=== PATIENT | male | born 1940 | race Caucasian/White ===

== ENCOUNTER 2016-08-27 16:24 | Inpatient (IN) | payer MEDICARE, BC ==
--- NOTE | ~2016-08-27 | HP ---
Unit #: [id number] #: [id number] Patient: JAQUAN STEVENSON [id number] [address] [place], [place] [address] [id number] I MR#: [id number] NAME: JAQUAN STEVENSON. ROOM: 572 Age: 76 Sex: M Admission Date: 08/27/2016 : 1940 Attending Physician: Jenny Granados M.D. Primary Care Physician: William Fernandez Jr., M.D. HISTORY AND PHYSICAL CHIEF COMPLAINT Mechanical fall with transverse displaced angulated right humerus fracture. HISTORY This very pleasant, 76-year-old male with DJD, CAD, history of arrhythmia, and hypertension is admitted for a right arm fracture. Patient was cleaning his gutters today, slipped off the last rung of the ladder, and fell backwards onto his right shoulder. Developed severe right shoulder pain and was brought to this ER tonight. X-rays show a displaced, angulated, transverse fracture, proximal shaft of the right humerus below his previous arthroplasty. Patient is in fairly significant pain and will be admitted to the hospital. Hopes are that surgery can be performed during this hospitalization. His usual surgeon, Dr. Mcgill, would not be able to put the patient on or schedule until mid next week. Patient's requests consultation from another orthopedic surgeon in hopes of sooner surgery. Again, he is in a considerable amount of pain, and his currently is disabled. PAST MEDICAL HISTORY 1. DJD. 2. CAD, status post PCI and stent many years ago status post AICD and permanent pacemaker insertion. Patient denies recent cardiac symptoms. He underwent a normal stress echo by Dr. Hernandez 12/2014. Ejection fraction was equal to 59%. No wall motion abnormalities. Mild MR noted. Grade 1 diastolic dysfunction. 3. Essential hypertension. 4. Early macular degeneration. 5. Neuropathy of the right foot, patient requires a brace. 6. Bilateral total knee replacements with left knee revision 05/2015. 7. Right shoulder replacement. 8. Left tennis elbow surgery. ALLERGIES To IV dye. HOME MEDICATIONS 1. Lopressor 50 mg b.i.d. 2. Imdur 30 mg daily. 3. Amiodarone 200 mg daily. 4. Norvasc 5 mg daily. 5. Aspirin 81 mg daily. 6. Lipitor 80 mg daily. 7. Lasix 20 mg as needed. Unit #: [id number] #: [id number] Patient: JAQUAN STEVENSON 8. Mobic 15 mg daily. FAMILY HISTORY CAD and kidney stones. SOCIAL HISTORY The patient lives with his who previously was a RN on [employer]. He is a lifelong nonsmoker and does not drink alcohol. REVIEW OF SYSTEMS Notable for a fall with painful right arm, DJD, CAD with abovementioned procedures, arrhythmia, macular degeneration, neuropathy, hypertension, and abovementioned surgeries. All other systems were reviewed and are otherwise negative. PHYSICAL EXAMINATION GENERAL APPEARANCE: Very pleasant, 76-year-old, mildly obese male currently in no acute distress after a couple of doses of morphine. VITAL SIGNS: Temperature 98.1, pulse 71, respirations 17, blood pressure 162/65, and O2 saturation 99% on room air. HEENT: Eyes: PERRLA. Extraocular muscles are intact. Pharynx: Benign. NECK: Supple without adenopathy or thyromegaly. CHEST: Clear. CARDIAC: Normal S1 and S2 without S3, S4, or murmur. ABDOMEN: Bowels sounds are present. No hepatosplenomegaly, tenderness, or masses. EXTREMITIES: With mild edema. Pedal pulses are diminished. Patient has a good right radial pulse. NEUROLOGIC: Patient is awake, alert, and oriented. His cranial nerves are intact. He is able to move all of his extremities. DIAGNOSTIC STUDIES IMAGING: X-ray shows a displaced, angulated, transverse fracture of the proximal shaft of the right humerus below the patient's right shoulder arthroplasty. ASSESSMENT 1. Mechanical fall with displaced, angulated, transverse fracture of the right humerus shaft below a previous arthroplasty. Patient is in considerable amount of pain and in a swath and sling. 2. CAD with normal LV function, status post PCI and stent. Asymptomatic from a cardiac standpoint. Negative stress echo, 12/2014, by Dr. Hernandez. He is status post AICD placement and permanent pacemaker insertion. 3. Hypertension. 4. DJD. 5. Early macular degeneration. PLANS 1. Check preop labs, EKG, along with urinalysis. 2. Pain control. 3. SCDs for DVT prophylaxis. 4. Sling and swath. 5. Patient's usual orthopedic surgeon, Dr. Mcgill, will not be able to perform surgery until mid next week. Patient requests consultation from Dr. Worley to see in the morning given severe pain and immobilization from his humerus fracture in hopes of sooner surgery. Unit #: [id number] #: [id number] Patient: JAQUAN STEVENSON Dictated by Chrissie Mariano/valentino TD: 08/28/2016 05:07 JOB #: [id number] HISTORY AND PHYSICAL Page 1 of 1 X Jenny Granados MD X HISTORY AND PHYSICAL
--- NOTE | ~2016-08-27 | CR157 ---
[facility] A Service of [facility] RADIOLOGY TEXT RESULTS PATIENT: JAQUAN STEVENSON LOCATION: C4B 454-01 : 40 UNIT #: [id number] AGE: [address]: Naveed Camargo MD SEX: M ORDER DR: [id number] [facility] [address] [facility]. [place], [place] [address] [id number] I MR#: [id number] Acc #: [id number] NAME: JAQUAN STEVENSON : 1940 SEX: M STUDY DATE/TIME: 08/28/2016 21:11 UNIT: C4B ROOM: [facility] STUDY DESCRIPTION: CR Humerus Min 2 View Rt Attending Physician: Naveed Camargo M.D. Ordering Physician: Naveed Camargo M.D. Primary Care Physician: William Fernandez Jr., M.D. MEDICAL IMAGING REPORT This report is preliminary unless electronic signature is present EXAM Right humerus series 08/28/2016 HISTORY Right humerus fracture postop brace. Cannot move arm or brace per order today. Yesterday fell broke arm off steps. FINDINGS AP and oblique views of the right humerus are presented. Comparison to shoulder series 08/27/2016. Prior right shoulder arthroplasty. There is a complete transverse fracture of the right humeral shaft near mid shaft level, at level of distal extent of orthopedic cement utilized for arthroplasty. The distal shaft fragment is displaced laterally by nearly a complete shaft width. There is no significant angulation. Minimal overlap of fracture fragments. The shoulder arthroplasty appears normally located and very limited view of the elbow joint appears grossly normally located. Degenerative changes in the acromioclavicular joint. Visualized ribs and pulmonary parenchyma unremarkable. Dictated by... William Elliott M.D. THIS IS AN ELECTRONICALLY VERIFIED REPORT William Elliott M.D. at 08/31/2016 8:20 PM JOSH/viktor TD: 08/29/2016 07:36 JOB #: [id number] MEDICAL IMAGING REPORT [facility] A Service of [facility] RADIOLOGY TEXT RESULTS PATIENT: JAQUAN STEVENSON LOCATION: [facility] 454-01 : 40 UNIT #: [id number] AGE: [address]: Naveed Camargo MD SEX: M ORDER DR: Page 1 of 1 COPY
--- NOTE | ~2016-08-27 | CR157 ---
[facility] A Service of [facility] RADIOLOGY TEXT RESULTS PATIENT: JAQUAN STEVENSON LOCATION: [facility] : 40 UNIT #: [id number] AGE: [address]: Naveed Camargo MD SEX: M ORDER DR: [id number] [facility] [address] [facility]. [place], [place] [address] [id number] I MR#: [id number] Acc #: [id number] NAME: JAQUAN STEVENSON : 1940 SEX: M STUDY DATE/TIME: 08/31/2016 13:12 UNIT: [facility] ROOM: [facility] STUDY DESCRIPTION: CR Humerus Min 2 View Rt Attending Physician: Naveed Camargo M.D. Ordering Physician: Ricky Worley M.D. Primary Care Physician: William Fernandez Jr., M.D. MEDICAL IMAGING REPORT This report is preliminary unless electronic signature is present EXAM Right humerus intraoperative views, 08/31/2016 13:12 hours HISTORY Closed intraoperative reduction of fracture of the humerus. COMPARISON 08/28/2016 Fluoroscopy time 1 minute, 10 seconds. Dose not recorded on image. FINDINGS Submitted for interpretation are 2 intraoperative views demonstrating a fracture of the humerus distal to the cement associated with the shoulder replacement. The overriding and angulation is reduced. The distal fragment is displaced laterally approximately one-half shaft width. IMPRESSION Intraoperative views demonstrate reduction of the overriding and angulation of the fracture of the mid humerus distal to the cement associated with the hardware at the right shoulder. There is slight displacement but no residual angulation or overriding of the fracture. Dictated by... Leny Guthrie M.D. THIS IS AN ELECTRONICALLY VERIFIED REPORT Leny Guthrie M.D. at 09/01/2016 9:28 AM Cristino TD: 08/31/2016 16:15 JOB #: [id number] [facility] A Service [facility] RADIOLOGY TEXT RESULTS PATIENT: JAQUAN STEVENSON LOCATION: [facility] : 40 UNIT #: [id number] AGE: [address]: Naveed Camargo MD SEX: M ORDER DR: MEDICAL IMAGING REPORT Page 1 of 1 COPY
--- NOTE | ~2016-08-27 | OR ---
Unit #: [id number] #: [id number] Patient: JAQUAN STEVENSON [id number] [address] [place], [place] [address] [id number] I MR#: [id number] NAME: JAQUAN STEVENSON. ROOM: 454 Date of Procedure: 08/31/2016 Admission Date: 08/27/2016 Surgeon: Ricky Worley M.D. : 1940 Attending Physician: Susanne Nieto M.D. Primary Care Physician: William Fernandez Jr., M.D. OPERATIVE REPORT PREOPERATIVE DIAGNOSIS Right periprosthetic humerus fracture. POSTOPERATIVE DIAGNOSIS Right periprosthetic humerus fracture. PROCEDURES Closed reduction, right humerus. SMART ENERGY SPECIALIST Marquita Desouza APRN, TETO. ANESTHESIA General with regional nerve block. ESTIMATED BLOOD LOSS Not applicable. INDICATIONS FOR PROCEDURE Mr. Stevenson is a 76-year-old gentleman with a displaced right periprosthetic humerus fracture. We trialed bracing with Amor brace. This has resulted in some translation of the distal shaft, relative to the proximal shaft. A closed reduction attempt was then indicated to see if his fracture is amenable to closed treatment. DESCRIPTION OF PROCEDURE The patient was identified in the preoperative holding area. The operative site was marked. Preoperative antibiotics were not indicated. Regional block was performed by Anesthesia in an attempt to avoid a general anesthetic given the patient's medical comorbidities. The patient was brought to the operating room and placed in supine on the operating table. The right upper extremity was anesthetized by the regional block. A closed reduction attempt was performed and was unsuccessful. Additional relaxation was required. The patient was then given propofol sedation which was still inadequate. The patient was then given further Propofol and a small dose of succinylcholine. This resulted in an improved distraction at the fracture site and improved apposition of the cortex, but we were still unable to completely reduced the fracture anatomically. After multiple attempts were made with longitudinal traction and pulling with a sheath in a contralateral direction. In the internal and external rotation of the arm, we placed the Amor brace Unit #: [id number] #: [id number] Patient: JAQUAN STVEENSON back in place and with a plan to re-x-ray of the patient with standing upright film. DISPOSITION Pending appearance on a full-length humerus film. Dictated by... Chrissie Morrell/delfino TD: 09/02/2016 23:58 JOB #: [id number] OPERATIVE REPORT Page 1 of 1 X Ricky Worley MD PROCEDURE OPERATIVE NOTE
--- NOTE | ~2016-08-27 | US140 ---
[facility] A Service of [facility] RADIOLOGY TEXT RESULTS PATIENT: JAQUAN STEVENSON LOCATION: [facility] : 40 UNIT #: [id number] AGE: [address]: Susanne Nieto MD SEX: M ORDER DR: [id number] [facility] [address]. [place], [place] [address] [id number] I MR#: [id number] Acc #: [id number] NAME: JAQUAN STEVENSON : 1940 SEX: M STUDY DATE/TIME: 09/01/2016 14:30 UNIT: B ROOM: [facility] STUDY DESCRIPTION: US UE Veins Unilat or Ltd Stdy Attending Physician: Susanne Nieto M.D. Ordering Physician: Susanne Nieto M.D. Primary Care Physician: William Fernandez Jr., M.D. MEDICAL IMAGING REPORT This report is preliminary unless electronic signature is present EXAM Right upper extremity venous ultrasound, 09/01/2016. HISTORY Right arm swelling for a week after breaking arm. TECHNIQUE Venous ultrasound examination of the right upper extremity was performed using grayscale, spectral Doppler and color flow Doppler imaging. FINDINGS The examination is negative. There is no evidence of deep venous thrombus within the right internal jugular vein, subclavian vein, axillary vein or brachial veins. No superficial venous thrombus is seen within the cephalic or basilic veins. IMPRESSION Negative examination. No evidence of right upper extremity venous thrombosis. Dictated by... Terry Rosado M.D. THIS IS AN ELECTRONICALLY VERIFIED REPORT Terry Rosado M.D. at 09/01/2016 4:56 PM CLAY/ken TD: 09/01/2016 16:44 JOB #: [id number] [facility] A Service [facility] RADIOLOGY TEXT RESULTS PATIENT: JAQUAN STEVENSON LOCATION: [facility] 454 : 40 UNIT #: [id number] AGE: [address]: Susanne Nieto MD SEX: M ORDER DR: MEDICAL IMAGING REPORT Page 1 of 1 COPY
--- NOTE | ~2016-08-27 | DS ---
Unit #: [id number] #: [id number] Patient: JAQUAN STEVENSON [id number] [address] [place], [place] [address] [id number] I MR#: [id number] NAME: JAQUAN STEVENSON. ROOM: 454 Age: 76 Sex: M Admission Date: 08/27/2016 : 1940 Discharge Date: 09/03/2016 Attending Physician: Susanne Nieto M.D. Primary Care Physician: William Fernandez Jr., M.D. DISCHARGE SUMMARY PRINCIPAL DIAGNOSES 1. Right displaced periprosthetic humerus fracture, status post open reduction and internal fixation. 2. Acute postoperative blood loss anemia. Discharge hemoglobin 10.9. 3. Hypertension. 4. Mild hyperglycemia. 5. Coronary artery disease. 6. Chronic diastolic congestive heart failure without exacerbation. Ejection fraction 59%. 7. Early macular degeneration. 8. Neuropathy of the right foot, chronic. 9. Osteoarthritis. 10. Status post atrial implantable cardioverter defibrillator. CONSULTANTS Dr. Worley, orthopedic surgery. PROCEDURES PERFORMED 1. Attempted closed reduction of right humerus fracture on 08/31/2016. This was, unfortunately, unsuccessful. 2. Open reduction and internal fixation of right humerus fracture on 09/02/2016. This occurred without complication. DIAGNOSTIC DATA IMAGING: X-ray of right shoulder on 08/27/2016 with displaced and angulated transverse fracture through the proximal shaft of the right humerus, below the tip of the humeral component of the right shoulder arthroplasty. Right upper extremity venous Doppler which was negative for DVT. CLINICAL HISTORY/HOSPITAL COURSE Mr. Stevenson is a very nice 76-year-old male who presented to the emergency department with the abrupt onset of right shoulder pain after falling off his wooden deck at home while it was raining. Please refer to history and physical for further details. X-ray of the right shoulder in the emergency department revealed a periprosthetic fracture and the patient was subsequently admitted. Dr. Worley was consulted. The patient subsequently underwent attempted closed reduction of the fracture, but unfortunately this was unsuccessful. He subsequently underwent open reduction and internal fixation on 09/02/2016. Postoperatively he has done very well. Plan is nonweightbearing of this fracture until followup with Dr. Worley. Unit #: [id number] #: [id number] Patient: JAQUAN STEVENSON The patient did develop some significant swelling of the right upper extremity secondary to the fall itself and subsequent bracing. Right upper extremity venous Doppler was negative for DVT. The patient will continue with therapy as outlined below. The patient's other chronic conditions all remained stable. He will be discharged home with home health today. DISCHARGE CONDITION Stable. DISPOSITION Discharge to home. DISCHARGE MEDICATIONS 1. Amiodarone 200 mg p.o. daily. 2. Atorvastatin 80 mg at bedtime. 3. Norvasc 5 mg daily. 4. Metoprolol succinate 50 mg b.i.d. 5. Lasix 20 mg p.o. daily p.r.n. for fluid overload. 6. Aspirin 81 mg daily. 7. Mobic 15 mg daily. 8. Percocet 10/325 mg 1 tablet p.o. q.4 h. p.r.n. pain. 9. Imdur ER 30 mg daily. DIET The patient was instructed to follow a heart-healthy diet. ACTIVITY 1. He is nonweightbearing on the right upper extremity. He may remain in the sling essentially all day, but may remove it two to three times per day to perform pendulum and range of motion of the elbow, wrist and hand. 2. He is to have daily dressing changes to the right upper extremity incision. 3. He may shower, but cannot get the incision wet, keep occlusive over the incision with showering. 4. He is not allowed to drive for at least six weeks [address] Dr. Worley's instructions. FOLLOWUP 1. The patient will follow up with Dr. Worley in two weeks. 2. He can follow up with his primary care physician, Dr. Fernandez, in approximately one month. Dictated by... Susanne Nieto M.D. ADOLFO/eriberto TD: 09/03/2016 13:00 JOB #: [id number] Unit #: [id number] #: [id number] Patient: JAQUAN STEVENSON DISCHARGE SUMMARY Page 1 of 1 X Susanen Nieto MD X DISCHARGE SUMMARY
--- NOTE | ~2016-08-27 | CR154 ---
[facility] A Service of [facility] RADIOLOGY TEXT RESULTS PATIENT: JAQUAN STEVENSON LOCATION: B 454-01 : 40 UNIT #: [id number] AGE: [address]: Susanne Nieto MD SEX: M ORDER DR: [id number] [facility] [address] [facility]. [place], [place] [address] [id number] I MR#: [id number] Acc #: [id number] NAME: JAQUAN STEVENSON : 1940 SEX: M STUDY DATE/TIME: 08/31/2016 17:30 UNIT: [facility] ROOM: [facility] STUDY DESCRIPTION: CR Humerus 1 View Rt Attending Physician: Naveed Camargo M.D. Ordering Physician: Ricky Worley M.D. Primary Care Physician: William Fernandez Jr., M.D. MEDICAL IMAGING REPORT This report is preliminary unless electronic signature is present EXAM Single view right humerus 08/31/2016 HISTORY Postop closed reduction. COMPARISON STUDIES Earlier today. FINDINGS Single view of the humerus demonstrates persistent displaced fracture, although the degree of the displacement has decreased. There is a shoulder arthroplasty present. IMPRESSION Persistent displaced mid-humeral fracture, although the degree of displacement has decreased. Dictated by... Pranav Noland M.D. THIS IS AN ELECTRONICALLY VERIFIED REPORT Pranav Noland M.D. at 09/02/2016 7:25 AM ARS/pcl TD: 08/31/2016 23:29 JOB #: [id number] MEDICAL IMAGING REPORT Page 1 of 1 COPY
--- NOTE | ~2016-08-27 | CR230 ---
[facility] A Service [facility] RADIOLOGY TEXT RESULTS PATIENT: JAQUAN STEVENSON LOCATION: [place] [address] : 40 UNIT #: [id number] AGE: [address]: Susanne Nieto MD SEX: M ORDER DR: [id number] [place] [id number] [facility]. [place], [place] [address] [id number] I MR#: [id number] Acc #: [id number] NAME: JAQUAN STEVENSON : 1940 SEX: M STUDY DATE/TIME: 09/02/2016 12:46 UNIT: [facility] ROOM: [facility] STUDY DESCRIPTION: CR Shoulder Min 2 View Rt Attending Physician: Susanne Nieto M.D. Ordering Physician: Ricky Worley M.D. Primary Care Physician: William Fernandez Jr., M.D. MEDICAL IMAGING REPORT This report is preliminary unless electronic signature is present EXAM Right shoulder, 09/02/2016. HISTORY Internal fixation of proximal humerus fracture. TECHNIQUE AP and lateral views of the shoulder was obtained. COMPARISON 08/27/2016 FINDINGS A long metal plate has been attached to the proximal 2/3 of the humerus, transfixing the fracture slightly proximal to the mid portion of the bone. There is a right shoulder prosthesis present, as well. IMPRESSION Internal fixation of the humeral shaft fracture has been performed. Dictated by... Terry Rosado M.D. THIS IS AN ELECTRONICALLY VERIFIED REPORT Terry Rosado M.D. at 09/02/2016 3:39 PM CLAY/ken TD: 09/02/2016 13:24 JOB #: [id number] [facility] A Service [facility] RADIOLOGY TEXT RESULTS PATIENT: JAQUAN STEVENSON LOCATION: [place] [address] : 40 UNIT #: [id number] AGE: [address]: Susanne Nieto MD SEX: M ORDER DR: MEDICAL IMAGING REPORT Page 1 of 1 COPY
--- NOTE | ~2016-08-27 | CO ---
Unit #: [id number] #: [id number] Patient: JAQUAN STEVENSON [id number] [address] [place], [place] [address] [id number] I MR#: [id number] NAME: JAQUAN STEVENSON. ROOM: 454 Age: 76 Sex: M Admission Date: 08/27/2016 : 1940 Attending Physician: Naveed Camargo M.D. Primary Care Physician: William Fernandez Jr., M.D. Consultation Date: 08/28/2016 CONSULTATION REPORT CHIEF COMPLAINT Right shoulder pain. HISTORY OF PRESENT ILLNESS Mr. Stevenson is a 67-year-old gentleman, who injured his right shoulder in a ground level slip and fall at home. He slipped and fell on a wet step on his deck. He landed on an outstretched right upper extremity. He then was subsequently seen in the emergency department where he was diagnosed with a right periprosthetic humeral shaft fracture. He is status post a previous right total shoulder arthroplasty. He was doing well with his implant prior to this fall. He was able to reach fully overhead, had no pain or difficulty. He is currently examined in his hospital bed. He is in a sling and a posterior splint. He is complaining of numbness in his hand. He is complaining of pain in the right shoulder with any attempted movement of the arm. It is only incompletely relieved with his pain medication. PAST MEDICAL HISTORY Hypertension, coronary artery disease, atrial fibrillation, hyperlipidemia. PAST SURGICAL HISTORY Pacemaker, defibrillator placement, coronary stenting x3, right total shoulder replacement, right total knee replacement, left tennis elbow release, left total knee replacement. MEDICATIONS Metoprolol, isosorbide mononitrate, amiodarone, amlodipine, aspirin, atorvastatin, furosemide, meloxicam, Viteyes, and multivitamin. ALLERGIES IV dye. SOCIAL HISTORY The patient has no alcohol or tobacco use. No illicit drug use. FAMILY HISTORY Noncontributory to current illness. REVIEW OF SYSTEMS Ten systems reviewed and negative except as noted in the HPI. PHYSICAL EXAMINATION GENERAL APPEARANCE: Healthy-appearing 76-year-old gentleman, in no acute Unit #: [id number] #: [id number] Patient: JAQUAN STEVENSON distress or discomfort. PSYCHIATRIC: Awake, alert, and oriented to person, place, time, and situation with normal range of mood and affect. CARDIAC: Regular rate and rhythm. PULMONARY: No increased work of breathing. Symmetric chest rise. ABDOMEN: Nondistended. NEUROLOGIC: He reports paresthesias in the hand diffusely, but has intact motor and sensory function throughout median, ulnar, and radial nerves. He has otherwise no neurologic deficits. LYMPHATICS: There was slight lymphedema in the fingers as expected with the current splinting. SKIN: He is in a splint, which partially obscures visualization of the arm, but no evidence of open fractures noted. There is no ecchymosis currently. There is expected soft tissue swelling. VASCULAR: His fingers are warm and well perfused with brisk capillary refill. MUSCULOSKELETAL: He is in a posterior splint in the right upper extremity. Further range of motion of the shoulder is deferred given the known fracture. DIAGNOSTIC STUDIES IMAGING STUDIES: Plain film radiographs reviewed of the right shoulder. These demonstrate a right periprosthetic humeral shaft fracture at the base of the implant. Overall alignment is well reduced on one view and there is slight apparent apex anterior angulation on the orthogonal view. IMPRESSION This is a 76-year-old gentleman with a right periprosthetic humeral shaft fracture. I will recommend a trial of bracing with a Amor brace. We will obtain this from [facility]. We will then re-x-ray him in the brace and try to manage this nonoperatively. Further disposition pending the results of the post bracing x-rays. Dictated by... Chrissie Morrell/delfino TD: 08/29/2016 03:35 JOB #: [id number] CONSULTATION REPORT Page 1 of 1 X Ricky Worley MD CONSULTATION REPORT
--- NOTE | ~2016-08-27 | CR157 ---
[facility] A Service of [facility] RADIOLOGY TEXT RESULTS PATIENT: JAQUAN STEVENSON LOCATION: B 454 : 40 UNIT #: [id number] AGE: [address]: Susanne Nieto MD SEX: M ORDER DR: [id number] [facility] [address] [facility]. [place], [place] [address] [id number] I MR#: [id number] Acc #: [id number] NAME: JAQUAN STEVENSON : 1940 SEX: M STUDY DATE/TIME: 09/02/2016 10:10 UNIT: [facility] ROOM: [facility] STUDY DESCRIPTION: CR Humerus Min 2 View Rt Attending Physician: Susanne Nieto M.D. Ordering Physician: Ricky Worley M.D. Primary Care Physician: William Fernandez Jr., M.D. MEDICAL IMAGING REPORT This report is preliminary unless electronic signature is present EXAM Right humerus HISTORY Humeral fracture. Open reduction internal fixation. TECHNIQUE 4 spot films were obtained for imaging guidance for open reduction and internal fixation of the humerus with a bone plate screws. Fluoroscopy time documented 1 minute 20 seconds. FINDINGS Please see the operative report for full details of the procedure. Alignment position across the fracture is anatomic. Dictated by... Ang Moore M.D. THIS IS AN ELECTRONICALLY VERIFIED REPORT Ang Moore M.D. at 09/02/2016 6:21 PM RLF/nhan TD: 09/02/2016 11:51 JOB #: [id number] MEDICAL IMAGING REPORT Page 1 of 1 COPY
--- NOTE | ~2016-08-27 | OR ---
Unit #: [id number] #: [id number] Patient: JAQUAN STEVENSON [id number] [address] [place], [place] [address] [id number] I MR#: [id number] NAME: JAQUAN STEVENSON. ROOM: 454 Date of Procedure: 09/02/2016 Admission Date: 08/27/2016 Surgeon: Ricky Worley M.D. : 1940 Attending Physician: Susanne Nieto M.D. Primary Care Physician: William Fernandez Jr., M.D. OPERATIVE REPORT PREOPERATIVE DIAGNOSIS Right displaced periprosthetic humerus fracture. POSTOPERATIVE DIAGNOSIS Right displaced periprosthetic humerus fracture. PROCEDURE PERFORMED Open reduction and internal fixation of right periprosthetic humerus fracture. MECHANICAL MAINTENANCE ENGINEER Marquita Desouza APRN, RNFA. ANESTHESIA General with interscalene nerve block. ESTIMATED BLOOD LOSS 200 mL. SPECIMENS None. COMPLICATIONS None apparent. IMPLANTS [employer] 14-hole NCB straight plate with 4.0 mm screws. INDICATIONS FOR PROCEDURE Mr. Stevenson is a 76-year-old gentleman, who has undergone a previous closed reduction attempt of his right periprosthetic humerus fracture. He has been in a Amor brace. The alignment improved, but continues to remain insufficiently reduced and be amenable to his closed treatment in a brace. We have discussed at this point transitioned to open reduction and internal fixation. He elected to proceed. Of note, the patient had questionable axillary nerve palsy. It is difficult to determine secondary to pain. Axillary nerve sensation is intact, but he has difficulty with humeral abduction and eliciting deltoid contraction. Musculocutaneous nerve function as well as median, ulnar, and radial nerve function is intact. DESCRIPTION OF PROCEDURE Unit #: [id number] #: [id number] Patient: JAQUAN STEVENSON The patient was identified in the preoperative holding area. The operative site was marked. Preoperative antibiotics were administered. A regional block was performed. The patient was brought to the operating room and placed supine on the operating table. A general anesthetic was induced. The arm was positioned on a radiolucent hand table. The right upper extremity was then prepped and draped in sterile fashion. The previous surgical incision was marked out over the anterior aspect of the shoulder and then marked out an extensile anterior approach to the humerus. The skin was incised sharply including extending up into the previous deltopectoral incision. The incision was then curved distally along the anterolateral humerus. Dissection was carried down to the subcutaneous tissues. The biceps brachii was identified distally and retracted medially. The underlying brachialis was identified. The prior deltopectoral interval was scarred, but was identifiable and was redeveloped. The lateral humeral cortex was identified proximally and distally and then we dissected toward the fracture site. The deltoid was elevated up off the humerus at the fracture site and tagged with Ethibond sutures for later repair. The fracture was identified and debrided of any interposed fibrous tissue. Fracture hematoma was left at the fracture site. Minimal periosteal elevation was performed around the fracture site. This was sufficiently mobilized to allow reduction of the fracture. Two lobster claw clamps were utilized to distract and then reduce the humeral shaft fracture. This was then provisionally clamped and plate of the desired size selected. We ultimately selected a size 14 plate. The plate was secured distally with a nonlocking fully-threaded cortical screw and proximally with a nonlocking fully-threaded cortical screw. The plate was positioned slightly anterior on the humeral shaft proximally to try to allow for screw fixation anterior to the humeral stem. The reduction was anatomic and plate placement was as desired. We then placed a total of 4 nonlocking fully-threaded cortical screws distally. We placed multiple nonlocking fully-threaded cortical screws proximally as well. These were all able to achieve bicortical purchase in a variable length anterior to the humeral stem. The first and third of the screws were then converted to locking screws with locking caps and the plate. All remaining screws were kept as nonlocking screws. Cerclage cables were not felt to be warranted given the sufficient bicortical screw purchase we had approximately around the stem. The arm was taken through range of motion and the fracture was stable and moved as a unit. The final x-rays were obtained as noted above and demonstrated adequate screw length and an anatomic reduction of the fracture. The wound was then irrigated and closed in a layered fashion. This included a #5 Ethibond closure of the deltoid back to the pectoralis as well as closure of the split in the brachialis and 0 Vicryl in the deltopectoral interval. The wound was then closed with 2-0 Vicryl and belen in the skin. Sterile dressings were applied. DISPOSITION Stable to the recovery room. Dictated by... Chrissie Morrell/delfino TD: 09/03/2016 03:06 JOB #: [id number] Unit #: [id number] #: [id number] Patient: JAQUAN STEVENSON OPERATIVE REPORT Page 1 of 1 X Ricky Worley MD X PROCEDURE OPERATIVE NOTE
--- NOTE | ~2016-08-27 | EKG ---
PATIENT: JAQUAN STEVENSON UNIT #: [id number] Ventricular Rate: 70 BPM Atrial Rate: 70 BPM P-R Interval: 234 ms QRS Duration: 120 ms Q-T Interval: 436 ms QTC Calculation(Bezet): 470 ms P [place]: -12 degrees Calculated R [place]: -32 degrees Calculated T [place]: 25 degrees Diagnosis Line: Atrial-paced rhythm with prolonged AV conduction Diagnosis Line: Left axis deviation Diagnosis Line: Poor R wave progression questionable lead position Diagnosis Line: or body habitus Diagnosis Line: Abnormal ECG Diagnosis Line: No previous ECGs available Diagnosis Line: Confirmed by QASIM GOLDMAN MD ([id number]) on 08/28/2016 Diagnosis Line: 8:07:53 PM INTERPRETING MD: SUSI RAO
--- NOTE | ~2016-08-27 | CR230 ---
[facility] A Service of [facility] RADIOLOGY TEXT RESULTS PATIENT: JAQUAN STEVENSON LOCATION: [facility] 454 : 40 UNIT #: [id number] AGE: [address]: Naveed Camargo MD SEX: M ORDER DR: [id number] [facility] [address] [facility]. [place], [place] [address] [id number] I MR#: [id number] Acc #: [id number] NAME: JAQUAN STEVENSON. : 1940 SEX: M STUDY DATE/TIME: 08/27/2016 17:51 UNIT: [facility] ROOM: 572 STUDY DESCRIPTION: CR Shoulder Min 2 View Rt Attending Physician: Jenny Granados M.D. Ordering Physician: Zeinab Abreu P.A.-C. Primary Care Physician: William Fernandez Jr., M.D. MEDICAL IMAGING REPORT This report is preliminary unless electronic signature is present EXAM Right shoulder 08/27/2016 HISTORY 76-year-old male with right shoulder pain status post fall from ladder today. COMPARISON None. FINDINGS 3 views of the right shoulder demonstrate a displaced transverse fracture through the proximal shaft of the right humerus. The fracture is below the tip of the humeral component of the right shoulder arthroplasty. Mild apex anterior angulation. Right shoulder arthroplasty remains normally located. Moderate degenerative change of the acromioclavicular joint. IMPRESSION 1. Displaced and angulated transverse fracture through the proximal shaft of the right humerus below the tip of the humeral component of the right shoulder arthroplasty. 2. No glenohumeral dislocation. Dictated by... Gennaro Barr M.D. THIS IS AN ELECTRONICALLY VERIFIED REPORT Gennaro Barr M.D. at 08/31/2016 7:39 AM ALFREDO/celine TD: 08/28/2016 01:01 JOB #: [id number] [facility] A Service of [facility] RADIOLOGY TEXT RESULTS PATIENT: JAQUAN STEVENSON LOCATION: [facility] 454-01 : 40 UNIT #: [id number] AGE: [address]: Naveed Camargo MD SEX: M ORDER DR: MEDICAL IMAGING REPORT Page 1 of 1 COPY
[~2016-08-27 16:24] MED LIST: ACETAMINOPHEN325 MG PO; AMIODARONE PO; ASPIRIN EC81 M1; ASPIRIN PO; ASPIRIN81 M1 PO; CERTAGEN PO; CLINORIL; CLINORIL PO; CLINORIL200 M1 PO; CORDARONE200 M1 PO; COUMADIN PO; COUMADIN6 MG PO; HYDROCODON-ACE1 EAC1 PO; HYDROCODON-ACE1 EAC2 PO; IMDUR PO; IMDUR-ER30 MG PO; LIPITOR PO; LIPITOR80 MG PO; LORTAB 5/500 TA1 TA1 PO; NABUMETONE PO; NORCO 10/3251 TAB PO; NORCO 5/325 TAB1 TAB PO; NORVASC PO; SULAR PO; SULAR20 MG PO; TOPROL XL; TOPROL XL PO; TOPROL XL50 MG PO; VITA EYES PO; [UNRECOGNIZED DRUG - OTHER]; [UNRECOGNIZED DRUG - OTHER] PO
[2016-08-27] MEDS ORDERED: METOPROLOL SUCC50 MG PO (20:31)
[2016-08-27] MEDS ORDERED: IMDUR-ER30 M3 PO (20:31)
[2016-08-27] MEDS ORDERED: AMLODIPINE BESYL5 MG PO (20:32)
[2016-08-27] MEDS ORDERED: AMIODARONE HCL200 MG PO (20:32)
[2016-08-27] MEDS ORDERED: ASPIRIN EC81 M1 PO (20:33)
[2016-08-27] MEDS ORDERED: MOBIC15 MG PO (20:33)
[2016-08-27] MEDS ORDERED: ATORVASTATIN CA80 MG PO (20:33)
[2016-08-27] MEDS ORDERED: LASIX20 MG PO (20:33)
[2016-08-28 05:00] LABS: URINE SOURCE CLEAN CATCH
[2016-08-28 05:11] LABS: URINE APPEARANCE CLEAR; URINE BILIRUBIN NEG (NEG); URINE BLOOD NEG (NEG); URINE COLOR YELLOW; URINE GLUCOSE 500 MG/DL (NEG); URINE KETONE NEG (NEG); URINE LEUKOCYTE ESTERASE NEG (NEG); URINE NITRATE NEG (NEG); URINE PROTEIN NEG (NEG); URINE SPECIFIC GRAVITY 1.028 (1.003-1.035)
[2016-08-28 05:21] LABS: CULTURE INDICATED? NO
[2016-08-28 07:44] LABS: BASOPHIL% 0.4 % (0-2.5); DIFF IND NO; EOSINOPHIL# 0.2 X10e3 (0-0.7); EOSINOPHIL% 1.8 % (0.0-7.0); HEMATOCRIT 38.2 % (38.0-50.0); HEMOGLOBIN 12.5 gm/dL (13.0-16.0); LYMPHOCYTE# 1.5 X10e3 (1.0-3.5); MEAN CORPUSCULAR HEMOGLOBIN 30.8 PG (28-34); MEAN CORPUSCULAR HGB CONC 32.8 g/dL (30-36); MEAN PLATELET VOLUME 9.6 FL (6.5-11.5); MONOCYTE# 0.9 X10e3 (0-1.0); MONOCYTE% 9.8 % (3.0-12.0); NEUTROPHIL# 6.1 X10e3 (1.5-7.1); PLATELET COUNT 137 X10e3 (140-420); RED BLOOD COUNT 4.07 X10e (3.90-5.60); RED CELL DISTRIBUTION WIDTH 14.4 % (11.0-15.5); WHITE BLOOD COUNT 8.6 X10e3 (4.0-10.5)
[2016-08-28 08:21] LABS: BUN/CREATININE RATIO 28.75; CREATININE SERUM 0.8 mg/dL (0.6-1.4); GLOM FILT RATE Estimated 86.8 mL/min (>60); POTASSIUM 3.7 mmol/L (3.5-5.1)
[2016-09-01 05:01] LABS: BASOPHIL% 0.4 % (0-2.5); EOSINOPHIL# 0.4 X10e3 (0-0.7); EOSINOPHIL% 4.4 % (0.0-7.0); HEMATOCRIT 36.2 % (38.0-50.0); LYMPHOCYTE# 1.6 X10e3 (1.0-3.5); LYMPHOCYTE% 18.3 % (17.0-45.0); MEAN CELL VOLUME 92.9 FL (83-96); MEAN CORPUSCULAR HEMOGLOBIN 30.8 PG (28-34); MEAN CORPUSCULAR HGB CONC 33.1 g/dL (30-36); MEAN PLATELET VOLUME 9.9 FL (6.5-11.5); MONOCYTE# 0.9 X10e3 (0-1.0); MONOCYTE% 10.7 % (3.0-12.0); NEUTROPHIL# 5.7 X10e3 (1.5-7.1); NEUTROPHIL% 66.2 % (40-75); PLATELET COUNT 155 X10e3 (140-420); RED CELL DISTRIBUTION WIDTH 14.1 % (11.0-15.5); WHITE BLOOD COUNT 8.6 X10e3 (4.0-10.5)
[2016-09-01 05:05] LABS: DIFF IND NO
[2016-09-01 06:10] LABS: CALCIUM SERUM 8.2 mg/dL (8.4-10.2); CREATININE SERUM 0.8 mg/dL (0.6-1.4); GLOM FILT RATE Estimated 86.8 mL/min (>60); POTASSIUM 4.5 mmol/L (3.5-5.1)
[2016-09-03 03:31] LABS: HEMOGLOBIN 10.9 gm/dL (13.0-16.0); MEAN CORPUSCULAR HEMOGLOBIN 30.7 PG (28-34); MEAN PLATELET VOLUME 9.5 FL (6.5-11.5); RED BLOOD COUNT 3.55 X10e (3.90-5.60); RED CELL DISTRIBUTION WIDTH 14.4 % (11.0-15.5); WHITE BLOOD COUNT 9.5 X10e3 (4.0-10.5)
[2016-09-03 04:06] LABS: BUN/CREATININE RATIO 17.5; CALCIUM SERUM 7.6 mg/dL (8.4-10.2); CREATININE SERUM 0.8 mg/dL (0.6-1.4); GLOM FILT RATE Estimated 86.8 mL/min (>60); POTASSIUM 4.2 mmol/L (3.5-5.1)
[2016-09-03] MEDS ORDERED: PERCOCET5/325 PO (13:44)
== END 2016-09-03 16:09 | disposition home health service (06) | DRG 493 ==
LOC: CED 16:24 → CFTX 16:24 → C4B 21:56 → CEDOF 21:56 → C5C 23:04 → C4B 08-28 08:16
PROVIDERS: Internal Medicine; Orthopaedic Surgery
PROC: 0PSFXZZ Reposition Right Humeral Shaft, External Approach (ICD-10-PCS; 2016-08-31)
PROC: 0PSF04Z Reposition Right Humeral Shaft with Internal Fixation Device, Open Approach (ICD-10-PCS; principal; 2016-09-02 09:00)
DX: S42.321A Displaced transverse fracture of shaft of humerus, right arm, initial encounter for closed fracture (principal); D62 Acute posthemorrhagic anemia; G62.9 Polyneuropathy, unspecified; I11.0 Hypertensive heart disease with heart failure; I50.32 Chronic diastolic (congestive) heart failure; I48.91 Unspecified atrial fibrillation; M97.31XA Periprosthetic fracture around internal prosthetic right shoulder joint, initial encounter; I25.10 Atherosclerotic heart disease of native coronary artery without angina pectoris; H35.30 Unspecified macular degeneration; E78.5 Hyperlipidemia, unspecified; W10.8XXA Fall (on) (from) other stairs and steps, initial encounter; Y92.007 Garden or yard of unspecified non-institutional (private) residence as the place of occurrence of the external cause; R73.9 Hyperglycemia, unspecified; M19.90 Unspecified osteoarthritis, unspecified site; Z95.810 Presence of automatic (implantable) cardiac defibrillator; Z91.041 Radiographic dye allergy status; Z96.653 Presence of artificial knee joint, bilateral; Z96.611 Presence of right artificial shoulder joint
CPT/HCPCS: 29105; 73030; 73060; 76001; 80048; 81003; 85025; 85027; 90471; 90715; 93005; 93971; 96374; 96375; 97110; 97116; 97161; 97530; 99285; C1713; G8978-GP; G8979-GP; J0330; J0690; J1170; J1650; J2270; J2405; J2710; J2795; J3010

== ENCOUNTER 2016-09-21 14:21 | Observation (INO) | payer MEDICARE, BC ==
--- NOTE | ~2016-09-21 | OR ---
Unit #: [id number] #: [id number] Patient: JAQUAN STEVENSON [id number] [address] [address] [id number] I MR#: [id number] NAME: JAQUAN STEVENSON. ROOM: 463 Date of Procedure: 09/21/2016 Admission Date: 09/21/2016 Surgeon: Ricky Worley M.D. : 1940 Attending Physician: Ricky Worley M.D. Referring Physician: Ricky Worley M.D. Primary Care Physician: William Fernandez Jr., M.D. OPERATIVE REPORT PREOPERATIVE DIAGNOSIS Right shoulder postoperative wound seroma. POSTOPERATIVE DIAGNOSES 1. Right shoulder postoperative wound seroma. 2. Deep wound fascial dehiscence. PROCEDURES PERFORMED 1. Right shoulder seroma evacuation. 2. Right shoulder complex layered wound closure of deep fascial dehiscence and elimination of space. PIPELINE CONSTRUCTION INSPECTOR Marquita Desouza. ANESTHESIA General. ESTIMATED BLOOD LOSS Approximately 100 mL of old seroma fluid, 25 mL of new surgical blood loss. COMPLICATIONS None apparent. DRAINS 1. Medium Hemovac x1. 2. Prevena incisional VAC x1. INDICATIONS FOR PROCEDURE Mr. Stevenson is a 76-year-old gentleman, who is status post ORIF of a right periprosthetic humerus fracture. He developed a large postoperative wound seroma. This was re-aspirated and the patient returned with draining wound and surgical evacuation and repeat closure is indicated. DESCRIPTION OF PROCEDURE The patient was identified in the preoperative holding area. The operative site was marked. The patient was brought to the operating room and placed supine on the operating table. A general anesthetic was induced. The right upper extremity was prepped and draped in sterile fashion. The previous surgical incision was reopened. An immediate large volume of Unit #: [id number] #: [id number] Patient: JAQUAN STEVENSON seroma fluid was evacuated. This was cultured. The incision was extended both proximally and distally. The deltopectoral closure was intact proximally, but more distally at the reattachment of the deltoid and packed, there was a fascial dehiscence. The incision was extended slightly further distally as the plate was identifiable palpable here. The deeper fascial closure over the biceps was dehisced as well. The wound was then irrigated with sterile saline via bulb lavage followed by Irrisept. This was then irrigated with pulsatile lavage. The wound was then assessed. There was no further fluid collections identified. The wound was then reclosed in a layered fashion with 0 PDS. The deltoid was repaired back to the medial soft tissues. The deep fascia of the biceps was repaired as well. The wound was then closed with 2-0 PDS and 3-0 nylon on the skin. The wound was closed over a deep medium Hemovac drain. A Prevena incisional wound VAC was placed as well. DISPOSITION Stable to the recovery room. Dictated by... Chrissie Morrell/delfino TD: 09/22/2016 07:10 JOB #: [id number] OPERATIVE REPORT Page 1 of 1 X Ricky Worley MD X PROCEDURE OPERATIVE NOTE
--- NOTE | ~2016-09-21 | DS ---
Unit #: [id number] #: [id number] Patient: JAQUAN STEVENSON [id number] [address] [place], [place] [address] [id number] MR#: [id number] NAME: JAQUAN STEVENSON ROOM: 463 Age: 76 Sex: M Admission Date: 09/21/2016 : 1940 Discharge Date: 09/23/2016 Attending Physician: Ricky Worley M.D. Referring Physician: Ricky Worley M.D. Primary Care Physician: William Fernandez Jr., M.D. DISCHARGE SUMMARY ADMITTING DIAGNOSIS Right shoulder postoperative wound seroma. DISCHARGE DIAGNOSIS Right shoulder postoperative wound seroma status post seroma evacuation and closure of fascial dehiscence. PROCEDURES PERFORMED On 09/21/2016 the patient underwent right shoulder seroma evacuation and closure of fascial dehiscence. Please see operative report for further details. BRIEF HISTORY Mr. Stevenson is a 76-year-old patient of ours who is status post ORIF of right periprosthetic humerus fracture. He developed a large postoperative wound seroma. This was aspirated twice in the office. The patient returned with a draining wound. We recommended seroma evacuation, as well as reclosure of the incision. The risks, benefits and alternatives were discussed with the patient, and he elected to proceed with surgery. HOSPITAL COURSE On the night of surgery, the patient was transferred to the orthopedic unit for postoperative care. He had a Prevena vac in place, as well as a Hemovac drain. Outputs were kept overnight for both his Prevena vac, as well as the Hemovac drain. He had 110 mL of serosanguineous drainage out of his Hemovac overnight. There was no drainage in the Prevena drain. Otherwise, the patient remained stable. On postop day number 1 the patient remained stable. He was awake, alert and oriented x3 and in no acute distress. He was afebrile, and his vital signs were stable. His white blood cell count was 7.4, and hemoglobin was 11.4. The Prevena dressing remained intact. There was no drainage in the canister. His Hemovac drain also remained intact. He had no surrounding hematoma around the incision site. Intraoperative wound cultures were pending. He was started on prophylactic vancomycin that the pharmacy was dosing. On postop day number 2, the patient's vital signs remained stable. He was awake, alert and oriented x3 and in no acute distress. The Hemovac drain had additional 55 mL of serosanguineous drainage out overnight. The Prevena drain had no drainage out overnight. The Prevena vac, as well as the Hemovac drain, was discontinued in the room by me today. The incision was clean, dry and intact. There was no surrounding erythema, warmth or hematoma. He was neurovascularly intact in the median, ulnar and radial Unit #: [id number] #: [id number] Patient: JAQUAN STEVENSON. His intraoperative wound cultures remained pending. Intraoperative Gram stain is negative. At this time, we will allow him to be discharged home after his second dose of vancomycin today. Aspirin was held due to bleeding risk from his wound. [facility]. DISCHARGE CONDITION Stable. DISPOSITION The patient will be discharged home where his , as well as other family members, will help with postoperative care. DISCHARGE MEDICATIONS 1. Amiodarone 200 mg p.o. daily. 2. Atorvastatin 80 mg p.o. daily. 3. Norvasc 5 mg p.o. daily. 4. Metoprolol 50 mg p.o. b.i.d. 5. Lasix 20 mg p.o. daily. 6. Multivitamin 1 tab p.o. daily. 7. Percocet 5/325 mg 1-2 tabs p.o. q.4 hours p.r.n. 8. Isosorbide mononitrate 30 mg tab p.o. daily. 9. Bactrim DS 1 tab p.o. b.i.d. for 10 days. NOTE: The patient already has a filled prescription for oxycodone at home, so he does not need any additional refills at this time. He also has a 7-day supply of Bactrim DS at home. We will write for him to have an additional 3-day supply, so he will be able to take the medication for 10 days. FOLLOWUP The patient will follow up with Dr. Worley in 2 weeks' time. He will call the office for an appointment. DISCHARGE INSTRUCTIONS 1. The patient will remain nonweightbearing of the right upper extremity and in his sling. He may remove his sling 2 to 3 times per day to perform pendulums, as well as range of motion of the elbow, wrist and hand. 2. He will perform daily dressing changes to the right upper extremity incision. 3. He is not to get his incision wet. He may shower but must keep an occlusive dressing over the incision when doing so. 4. We will discontinue home health at this time, as he has multiple family members to help with his care. Dictated by... Zi Telles APRN for Chrissie Morrell/charlotte TD: 09/24/2016 07:35 JOB #: [id number] Unit #: [id number] #: [id number] Patient: JAQUAN STEVENSON DISCHARGE SUMMARY Page 1 of 1 X ZI TELLES APRN X DISCHARGE SUMMARY
[~2016-09-21 14:21] MED LIST changes: +AMIODARONE HCL200 MG PO; +AMLODIPINE BESYL5 MG PO; +ASPIRIN EC81 M1 PO; +ATORVASTATIN CA80 MG PO; +IMDUR-ER30 M3 PO; +LASIX20 MG PO; +METOPROLOL SUCC50 MG PO; +MOBIC15 MG PO; +PERCOCET5/325 PO
[2016-09-21] MEDS ORDERED: MULTIVITAMINS1 EAC4 PO (14:45)
[2016-09-21] MEDS ORDERED: NABUMETONE PO (14:45)
[2016-09-21 15:34] LABS: BUN/CREATININE RATIO 14.54; CALCIUM SERUM 8.8 mg/dL (8.4-10.2); CREATININE SERUM 1.1 mg/dL (0.6-1.4); GLOM FILT RATE Estimated 64.9 mL/min (>60); POTASSIUM 4.7 mmol/L (3.5-5.1)
[2016-09-22 10:45] LABS: BASOPHIL% 0.5 % (0-2.5); EOSINOPHIL% 0.3 % (0.0-7.0); HEMATOCRIT 34.7 % (38.0-50.0); HEMOGLOBIN 11.4 gm/dL (13.0-16.0); LYMPHOCYTE# 1.1 X10e3 (1.0-3.5); LYMPHOCYTE% 14.3 % (17.0-45.0); MEAN CELL VOLUME 92.7 FL (83-96); MEAN CORPUSCULAR HEMOGLOBIN 30.3 PG (28-34); MEAN CORPUSCULAR HGB CONC 32.7 g/dL (30-36); MEAN PLATELET VOLUME 8.8 FL (6.5-11.5); MONOCYTE# 0.5 X10e3 (0-1.0); MONOCYTE% 6.6 % (3.0-12.0); NEUTROPHIL# 5.8 X10e3 (1.5-7.1); NEUTROPHIL% 78.3 % (40-75); PLATELET COUNT 201 X10e3 (140-420); RED BLOOD COUNT 3.75 X10e (3.90-5.60); RED CELL DISTRIBUTION WIDTH 14.7 % (11.0-15.5); WHITE BLOOD COUNT 7.4 X10e3 (4.0-10.5)
[2016-09-22 10:50] LABS: DIFF IND NO
[2016-09-23 03:54] LABS: BUN/CREATININE RATIO 17.77; CALCIUM SERUM 7.8 mg/dL (8.4-10.2); CREATININE SERUM 0.9 mg/dL (0.6-1.4); GLOM FILT RATE Estimated 82.7 mL/min (>60); POTASSIUM 4.1 mmol/L (3.5-5.1)
[2016-09-23] MEDS ORDERED: BACTRIM DS TAB1 EACH PO (11:55)
== END 2016-09-23 12:51 | disposition home or self-care (01) ==
LOC: CSUR 14:21 → CPACUOF 17:00 → C4C 17:00 → CSUR 17:05 → CPACUOF 17:05 → C4C 17:05 → CPACUOF 19:42 → C4C 19:42
PROVIDERS: Nurse Practitioner; Orthopaedic Surgery
DX: M96.842 Postprocedural seroma of a musculoskeletal structure following a musculoskeletal system procedure (principal); T81.32XA Disruption of internal operation (surgical) wound, not elsewhere classified, initial encounter; Y83.8 Other surgical procedures as the cause of abnormal reaction of the patient, or of later complication, without mention of misadventure at the time of the procedure; I25.10 Atherosclerotic heart disease of native coronary artery without angina pectoris; Z95.810 Presence of automatic (implantable) cardiac defibrillator; Z95.5 Presence of coronary angioplasty implant and graft; Z91.041 Radiographic dye allergy status; Z91.048 Other nonmedicinal substance allergy status
CPT/HCPCS: 80048; 85025; 87070; 87075; 87205; 96374; 96376; G0378; J0690; J1100; J2250; J2405; J3010; J3370

== ENCOUNTER 2016-10-09 16:48 | Inpatient (IN) | payer MEDICARE, BC ==
--- NOTE | ~2016-10-09 | DS ---
Unit #: [id number] #: [id number] Patient: JAQUAN STEVENSON [id number] [address] [place], [place] [address] [id number] MR#: [id number] NAME: JAQUAN STEVENSON. ROOM: [facility] Age: 76 Sex: M Admission Date: 10/09/2016 : 1940 Discharge Date: 10/13/2016 Attending Physician: Ricky Worley M.D. Referring Physician: Ricky Worley M.D. Primary Care Physician: William Fernandez Jr., M.D. DISCHARGE SUMMARY ADMISSION DIAGNOSIS Right humerus postoperative wound infection. DISCHARGE DIAGNOSIS Corynebacterium infection of right humerus open reduction and internal fixation. SECONDARY DIAGNOSES 1. Arrhythmia. 2. Hyperlipidemia. 3. Hypertension. PROCEDURES THIS HOSPITALIZATION 1. Irrigation and debridement of right humerus postoperative wound infection with evacuation of seroma. 2. PICC line placement in left upper extremity. CULTURE RESULTS Corynebacterium. Rare corynebacterium species from tissue and fluid cultures. CONSULTING SERVICE Infectious disease, Dr. Krishna: Discharge plan for six weeks of IV vancomycin with stop date of November 21, 2016. ADMISSION HISTORY Briefly, Mr. Stevenson is a 76-year-old gentleman who is status post ORIF of a previous periprosthetic humerus fracture. He has developed large postoperative seroma. This has undergone evacuation. He returned with a recurrent fluid collection and indurated, erythematous surgical site despite treatment with Bactrim. HOSPITAL COURSE The patient was directly admitted from the outpatient office for overnight IV antibiotic treatment. The following morning, he was found to continue to have a swollen, erythematous surgical site. He then underwent evacuation of fluid collection with debridement of the soft tissue and going down to bone. For details, please see dictated operative report. His postoperative course has been unremarkable. He had a Hemovac drain in place as well as an incisional wound VAC. The Hemovac drain put out only 15 mL and was pulled without any recurrent fluid collection. The wound VAC was left in place on the day of discharge. Unit #: [id number] #: [id number] Patient: JAQUAN STEVENSON His hemoglobin has remained stable and is at 10.7 the day of discharge. His cultures grew out rare corynebacterium species, which was consistent with his previous operative culture. Infectious disease was consulted. He was initially on empiric vancomycin and Zosyn, which was changed to vancomycin and Cefepime by ID. Once cultures grew out, the Cefepime was discontinued and he was kept on vancomycin alone. The plan was for discharge home on vancomycin for six weeks. He currently is up and ambulatory independently in the room. He has resumed his regular diet. He had one episode of constipation, which was resolved uneventfully with Dulcolax and Colace. He is now tolerating a regular diet. At the current time, he is medically stable for discharge home. DISCHARGE MEDICATIONS 1. Amiodarone 200 mg p.o. daily. 2. Atorvastatin 80 mg p.o. q.h.s. 3. Amlodipine 5 mg p.o. daily. 4. Toprol XL 12.5 mg p.o. b.i.d. 5. Lasix 20 mg p.o. daily as needed. 6. Multivitamin daily. 7. Imdur 30 mg p.o. daily. 8. Vancomycin 1500 mg IV q.12 hours, stop date 11/21/16. The patient is to discontinue Relafen, meloxicam, and aspirin. DISCHARGE INSTRUCTIONS 1. The patient should perform pendulums only as well as range of motion of the elbow at home. He should avoid any other routine use of the right upper extremity. 2. He should keep the surgical site clean and dry. 3. Followup: He will follow up in two weeks' time as scheduled. Dictated by... Ricky Worley M.D. SPENCER/valentino TD: 10/15/2016 09:30 JOB #: [id number] DISCHARGE SUMMARY Page 1 of 1 X Ricky Worley MD X DISCHARGE SUMMARY
--- NOTE | ~2016-10-09 | CO ---
Unit #: [id number] #: [id number] Patient: JAQUAN STEVENSON [id number] [facility]. [address] [place], [place] [address] [id number] I MR#: [id number] NAME: JAQUAN STEVENSON. ROOM: 473 Age: 76 Sex: M Admission Date: 10/09/2016 : 1940 Attending Physician: Ricky Worley M.D. Primary Care Physician: William Fernandez Jr., M.D. Consultation Date: 10/11/2016 CONSULTATION REPORT REASON FOR CONSULTATION Infected right upper extremity wound and hardware infection. HISTORY OF PRESENT ILLNESS This is a 76-year-old gentleman with history of humeral fracture, who underwent open reduction and internal fixation of right periprosthetic humeral fracture complicated by postoperative seroma, initially aspirated and debrided. He was treated with course of Bactrim, but his infection reoccurred. At this point, he underwent I and D, complex wound closure, and hardware retention. Operative findings included infection and possible hardware involvement. He was started on vancomycin and cefepime. ID was consulted for further evaluation. His cultures at 09/21/2016 have revealed corynebacterium. OR cultures from yesterday are pending. PAST MEDICAL HISTORY Hyperlipidemia, coronary artery disease, cardiac arrhythmias, macular degeneration. PAST SURGICAL HISTORY Right total knee replacement, coronary artery stenting, left knee replacement, right total shoulder replacement, and pacemaker defibrillator placement. ALLERGIES Iodine and IV dye. HOME MEDICATIONS Aspirin, meloxicam, amiodarone, Norvasc, metoprolol, atorvastatin, Lasix, multivitamins, Relafen, Imdur, and Bactrim. In the hospital, he is also on vancomycin and Zosyn. The Bactrim has been stopped. SOCIAL HISTORY No history of alcohol, drug, or tobacco abuse. He is and lives at home. FAMILY HISTORY Negative. SYSTEMIC REVIEW Right upper extremity swelling and discomfort. There is no fever or chills. No abdominal pain, cough, sputum production, abdominal pain, nausea, vomiting, or diarrhea. Unit #: [id number] #: [id number] Patient: JAQUAN STEVENSON PHYSICAL EXAMINATION GENERAL: Revealed elderly white male, who is awake and alert, in no acute distress. He is fully conscious and oriented to time, place, and person. VITAL SIGNS: Temperature is 97.9, heart rate 78, respirations 18, blood pressure 120/62. HEENT: Unremarkable. NECK: Supple. There is no JVD or edema. LUNGS: Clear to percussion and auscultation. HEART: Sounds normal. There are no murmurs. ABDOMEN: Soft and nontender without organomegaly or ascites. Bowel sounds normal. NEUROLOGIC: Nonfocal. EXTREMITIES: Right arm is in dressing. DIAGNOSTIC STUDIES LABORATORY RESULTS: BMP is unremarkable. White count is 9.7, hematocrit is 35.9, platelets 194. CRP is 9.1. Cultures from the OR are pending. I reviewed his previous cultures, which show corynebacterium on 09/21/2016 on 2 different specimens including bone and fluid. IMAGING STUDIES: X-ray of the humerus show screw fixation of the humerus with persistent fracture line and no definitive new fracture. X-ray of the shoulder show right shoulder arthroplasty without any obvious dislocation. IMPRESSION Infected right humerus with hardware involvement, status post incision and drainage and prosthesis retention. Culture is pending. Previous cultures positive for corynebacterium. RECOMMENDATIONS At this point, I will continue cefepime and vancomycin and follow the OR cultures and will adjust antibiotic therapy accordingly. With suspicion of hardware involvement, I will recommend at least 6 weeks of IV antimicrobial therapy depending upon the culture results and long-term surgical followup for possible relapse which may occur if the hardware infection is not eradicated. The plan was discussed with the patient in detail, he was agreeable. The risks and side effects of antibiotics were all discussed in detail. Dictated by... Chrissie Portillo/delfino TD: 10/13/2016 17:14 JOB #: [id number] Unit #: [id number] #: [id number] Patient: JAQUAN STEVENSON CONSULTATION REPORT Page 1 of 1 X Eduardo Krishna MD CONSULTATION REPORT
--- NOTE | ~2016-10-09 | HP ---
Unit #: [id number] #: [id number] Patient: JAQUAN STEVENSON [id number] [address] [place], [place] [address] [id number] I MR#: [id number] NAME: JAQUAN STEVENSON. ROOM: [facility] Age: 76 Sex: M Admission Date: 10/09/2016 : 1940 Attending Physician: Ricky Worley M.D. Referring Physician: Ricky Worley M.D. Primary Care Physician: William Fernandez Jr., M.D. HISTORY AND PHYSICAL CHIEF COMPLAINT Right humerus postoperative wound infection. HPI Mr. Stevenson is a 76-year-old gentleman who underwent a previous ORIF of a right periprosthetic humerus fracture. He then developed a postoperative seroma. This was initially aspirated in the office twice. Again, it returned and he was taken to the operating room for irrigation and debridement. His cultures were initially negative and he was discharged home to complete his previously prescribed course of Bactrim. It was then noted that one of his cultures grew out carinii bacterium. At that point, he had returned back to the office having failed oral Bactrim and a previous washout with increased erythema, soft tissue swelling, and induration about the right humerus surgical site. He was then admitted to the hospital and started on empiric broad-spectrum IV antibiotic coverage with a plan for likely I and D the following morning. PAST MEDICAL HISTORY Hyperlipidemia, coronary artery disease, cardiac arrhythmia, and macular degeneration. PAST SURGICAL HISTORY Right total knee replacement, coronary artery stenting, left knee replacement, right total shoulder replacement, and pacemaker defibrillator placement. ALLERGIES Iodine and IV dye. HOME MEDICATIONS 1. Aspirin. 2. Meloxicam. 3. Amiodarone. 4. Norvasc. 5. Toprol XL. 6. Atorvastatin. 7. Lasix. 8. Multivitamin. 9. Relafen. 10. Imdur. 11. Bactrim DS. SOCIAL HISTORY The patient has no alcohol or tobacco use. He is and lives with Unit #: [id number] #: [id number] Patient: JAQUAN STEVENSON his . FAMILY HISTORY Noncontributory to the current illness. REVIEW OF SYSTEMS Ten systems are reviewed and negative except as noted. PHYSICAL EXAMINATION GENERAL APPEARANCE: Healthy-appearing, 76-year-old gentleman in no acute distress or discomfort. PSYCHIATRIC: Awake, alert, and oriented to person, place, time, and situation. HEENT: Normocephalic and atraumatic cranium. Pupils are equal, round, and reactive to light. CARDIAC: Regular rate and rhythm. PULMONARY: No increased work of breathing. Symmetric chest rise. ABDOMEN: Nondistended. NEUROLOGIC: Intact medial ulnar and radial nerve motor and sensory function. Intact axillary nerve and musculocutaneous function proximally in the shoulder. SKIN: There is a large overlying area of erythema and induration about the right humerus surgical incision. There is soft tissue swelling present. LYMPHATICS: There is lymphedema and soft tissue swelling, as noted above. No palpable lymphadenopathy. VASCULAR: His hands are warm and well perfused. MUSCULOSKELETAL: Range of motion of the shoulder is decreased compared to his previous visit in which he had regained forward elevation of over 120-130 degrees. 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 PLAN Patient is admitted to be started on empiric antibiotic treatment to see if his cellulitis improves. We will likely plan for open irrigation and debridement with culture tomorrow morning on 10/10/2016. Dictated by Chrissie Morrell/valention TD: 10/10/2016 12:41 JOB #: [id number] Unit #: [id number] #: [id number] Patient: JAQUAN STEVENSON HISTORY AND PHYSICAL Page 1 of 1 X Ricky Worley MD HISTORY AND PHYSICAL
--- NOTE | ~2016-10-09 | OR ---
Unit #: [id number] #: [id number] Patient: JAQUAN STEVENSON [id number] [address] [place], [place] [address] [id number] I MR#: [id number] NAME: JAQUAN STEVENSON. ROOM: [facility] Date of Procedure: 10/10/2016 Admission Date: 10/09/2016 Surgeon: Ricky Worley M.D. : 1940 Attending Physician: Ricky Worley M.D. Referring Physician: Ricky Worley M.D. Primary Care Physician: William Fernandez Jr., M.D. OPERATIVE REPORT PREOPERATIVE DIAGNOSIS Right humerus postoperative wound infection. POSTOPERATIVE DIAGNOSIS Right humerus postoperative wound infection, involving right humerus hardware. PROCEDURES PERFORMED 1. Irrigation and debridement of right shoulder postoperative wound infection. 2. Complex layered revision wound closure. ANESTHESIA General. SPECIMENS 1. Culture swabs x2 to microbiology. 2. Soft tissue membrane from humerus to microbiology. INDICATIONS FOR PROCEDURE Mr. Stevenson is a 76-year-old gentleman with a history of a previous ORIF of a periprosthetic fracture. He has history of a previous seroma which has been drained as well. This has now returned with overall appearance concerning for a deep hardware infection. He was started empirically on IV antibiotics overnight and his wound has failed to respond. Repeat I and D is indicated today. DESCRIPTION OF PROCEDURE The patient was identified in the preoperative holding area. Operative site was marked. Preoperative antibiotics were not required as the patient is on standing IV antibiotics. The patient was brought to the operating room and placed supine on the operating table. A general anesthetic was induced. The patient was positioned with the right arm padded on a radiolucent arm board. The right arm was prepped and draped in sterile fashion. The previous surgical incision was reopened along the mid portion. Dissection was carried down through subcutaneous tissues. Upon entering the deeper subcutaneous tissues, we encountered immediately a large cloudy fluid collection. This was mixed seroma type fluid, also hematoma, but appeared to be infectious in nature contrary to that which we encountered at his last operation. Cultures were taken of this fluid collection. Unit #: [id number] #: [id number] Patient: JAQUAN STEVENSON This communicated directly down to the plate. Again, there was a deeper soft tissue, fascial dehiscence. The dissection was carried all way down to the plate. This large space pocket was fully explored and examined and then run the entire length of the plate. We did extend somewhat proximally. There is no involvement of the glenohumeral joint proximally. There was a fibrinous membrane type tissue overlying the humerus. This was taken for culture. This was then debrided with a curette and rongeurs. The wound was then irrigated with Irrisept followed by a saline lavage. This was then followed by Pulsavac with bacitracin. This was then followed by plain saline. The wound was inspected. There was no evidence of any other remaining infectious debris. A medium Hemovac drain was placed into the space. Some FloSeal was placed as well in an area of some ongoing oozing. The wound was then closed with 0 PDS. This was a complex revision wound closure, which required repeat dissection and advancement of the deep fascial plane to try to eliminate the deeper space. We then closed this with 2-0 more superficially and a 3-0 nylon on the skin. There was ongoing oozing from the superficial tissues. Therefore, a Prevena incisional wound VAC management system was placed. DISPOSITION Placed back into a sling, aroused from anesthesia and transferred to the recovery room in stable condition. Dictated by... Chrissie Morrell/delfino TD: 10/10/2016 18:01 JOB #: [id number] OPERATIVE REPORT Page 1 of 1 X Ricky Worley MD X PROCEDURE OPERATIVE NOTE
[~2016-10-09 16:48] MED LIST changes: +BACTRIM DS TAB1 EACH PO; +MULTIVITAMINS1 EAC4 PO
[2016-10-09] MEDS ORDERED: ATORVASTATIN CA80 MG PO (18:00)
[2016-10-09] MEDS ORDERED: LASIX20 MG PO (18:01)
[2016-10-09] MEDS ORDERED: MULTIVITAMINS1 EAC3 PO (18:01)
[2016-10-09] MEDS ORDERED: BACTRIM DS TAB1 EACH PO (18:02)
[2016-10-09] MEDS ORDERED: NABUMETONE PO (18:04)
[2016-10-09] MEDS ORDERED: CHEWABLE ASPIRI81 MG PO (18:05)
[2016-10-09] MEDS ORDERED: MELOXICAM15 MG PO (18:06)
[2016-10-09] MEDS ORDERED: AMIODARONE HCL200 MG PO (18:06)
[2016-10-09] MEDS ORDERED: IMDUR-ER30 M1 PO (18:07)
[2016-10-09] MEDS ORDERED: TOPROL XL50 MG PO (18:07)
[2016-10-09] MEDS ORDERED: NORVASC PO (18:07)
[2016-10-09 18:50] LABS: BASOPHIL% 0.4 % (0-2.5); EOSINOPHIL# 0.1 X10e3 (0-0.7); HEMATOCRIT 35.9 % (38.0-50.0); HEMOGLOBIN 11.7 gm/dL (13.0-16.0); MEAN CORPUSCULAR HEMOGLOBIN 29.9 PG (28-34); MEAN CORPUSCULAR HGB CONC 32.5 g/dL (30-36); MEAN PLATELET VOLUME 9.5 FL (6.5-11.5); MONOCYTE% 10.4 % (3.0-12.0); NEUTROPHIL# 7.6 X10e3 (1.5-7.1); NEUTROPHIL% 78.2 % (40-75); PLATELET COUNT 194 X10e3 (140-420); RED BLOOD COUNT 3.91 X10e (3.90-5.60); RED CELL DISTRIBUTION WIDTH 14.9 % (11.0-15.5); WHITE BLOOD COUNT 9.7 X10e3 (4.0-10.5)
[2016-10-09 18:53] LABS: DIFF IND NO
[2016-10-10 04:09] LABS: BUN/CREATININE RATIO 22.5; CALCIUM SERUM 7.7 mg/dL (8.4-10.2); CREATININE SERUM 0.8 mg/dL (0.6-1.4); GLOM FILT RATE Estimated 86.8 mL/min (>60); POTASSIUM 4.1 mmol/L (3.5-5.1)
[2016-10-12 03:48] LABS: BUN/CREATININE RATIO 17.5; CALCIUM SERUM 7.8 mg/dL (8.4-10.2); CREATININE SERUM 0.8 mg/dL (0.6-1.4); GLOM FILT RATE Estimated 86.8 mL/min (>60); POTASSIUM 3.9 mmol/L (3.5-5.1)
[2016-10-13 03:22] LABS: BASOPHIL% 0.7 % (0-2.5); EOSINOPHIL# 0.3 X10e3 (0-0.7); EOSINOPHIL% 4.5 % (0.0-7.0); HEMATOCRIT 33.1 % (38.0-50.0); HEMOGLOBIN 10.7 gm/dL (13.0-16.0); LYMPHOCYTE# 1.6 X10e3 (1.0-3.5); LYMPHOCYTE% 27.6 % (17.0-45.0); MEAN CELL VOLUME 91.6 FL (83-96); MEAN CORPUSCULAR HEMOGLOBIN 29.6 PG (28-34); MEAN CORPUSCULAR HGB CONC 32.4 g/dL (30-36); MEAN PLATELET VOLUME 9.3 FL (6.5-11.5); MONOCYTE# 0.6 X10e3 (0-1.0); MONOCYTE% 9.4 % (3.0-12.0); NEUTROPHIL# 3.5 X10e3 (1.5-7.1); NEUTROPHIL% 57.8 % (40-75); PLATELET COUNT 173 X10e3 (140-420); RED BLOOD COUNT 3.62 X10e (3.90-5.60); RED CELL DISTRIBUTION WIDTH 14.5 % (11.0-15.5)
[2016-10-13 03:34] LABS: DIFF IND NO
[2016-10-13 04:03] LABS: BUN/CREATININE RATIO 18.57; CALCIUM SERUM 8.2 mg/dL (8.4-10.2); CREATININE SERUM 0.7 mg/dL (0.6-1.4); GLOM FILT RATE Estimated 91.7 mL/min (>60); POTASSIUM 4.1 mmol/L (3.5-5.1)
[2016-10-13] MEDS ORDERED: PERCOCET 5/321 UDTAB PO (08:46)
[2016-10-13] MEDS ORDERED: VANCOMYCIN1.5 GM/250 IV (08:49)
== END 2016-10-13 13:32 | disposition home health service (06) | DRG 857 ==
LOC: CSUR 16:48 → C4C 16:49 → CSUR 17:15 → C4C 17:15 → CSUR 10-10 09:30 → C4C 10-13 13:32
PROVIDERS: Nurse Practitioner Family; Orthopaedic Surgery
PROC: 0KB70ZZ Excision of Right Upper Arm Muscle, Open Approach (ICD-10-PCS; 2016-10-10)
PROC: 02HV33Z Insertion of Infusion Device into Superior Vena Cava, Percutaneous Approach (ICD-10-PCS; principal; 2016-10-11)
PROC: 4A02X4A Measurement of Cardiac Electrical Activity, Guidance, External Approach (ICD-10-PCS; 2016-10-11)
DX: T81.4XXA Infection following a procedure, initial encounter (principal); T81.32XA Disruption of internal operation (surgical) wound, not elsewhere classified, initial encounter; G62.9 Polyneuropathy, unspecified; E78.5 Hyperlipidemia, unspecified; I25.10 Atherosclerotic heart disease of native coronary artery without angina pectoris; H35.30 Unspecified macular degeneration; Z96.653 Presence of artificial knee joint, bilateral; Z96.611 Presence of right artificial shoulder joint; Z95.810 Presence of automatic (implantable) cardiac defibrillator; Z79.82 Long term (current) use of aspirin; Z91.041 Radiographic dye allergy status; M21.371 Foot drop, right foot
CPT/HCPCS: 73030; 73060; 80048; 80202; 85025; 85652; 86140; 87070; 87075; 87205; 99283; J0692; J2405; J2543; J3010; J3370